=== PATIENT | female | born 1975 | race Caucasian/White ===

== ENCOUNTER 2021-02-05 09:36 | Emergency (ER) | payer MEDICAID ==
[~2021-02-05] VITALS: Ht 162.6 cm; Wt 80.7 kg
[2021-02-05 09:39] VITALS: BP 134/80
--- NOTE | 2021-02-05 09:58 | NUR ---
ERPA AT BEDSIDE FOR EVALUATION.
--- NOTE | 2021-02-05 09:59 | NUR ---
PATIENT WALKED BACK FROM TRIAGE WITH CHIEF C/O NEED REFILL OF HYCINGLA. PER PATIENT SHE JUST MOVED HERE FROM [place] AND WILL RUN OUT OF PAIN MEDICATION TOMORROW, HAS NOT ESTABLISHED WITH PRIMARY LOCALLY YET. DOES HAVE APPOINTMENT WITH CT PAIN SPECIALIST ON TUESDAY. PATIENT TAKES PAIN MEDICATION FOR ARTHRITIS FOR THE LAST 7 YEARS. FARRAH, CALL LIGHT WITHIN REACH.
[2021-02-05] MEDS ORDERED: ONDANSETRON ODT 4 MG ONE (10:46)
[2021-02-05] MEDS ORDERED: HYDROmorphone 1 MG/ML, 1ML INJ ONE (10:46)
[2021-02-05] MEDS ORDERED: ONDANSETRON ODT 4 MG PO ONE (11:00)
[2021-02-05] MEDS ORDERED: HYDROmorphone 1 MG/ML, 1ML INJ IM ONE (11:00)
--- NOTE | 2021-02-05 11:00 | NUR ---
Patient given discharge instructions and they have confirmed that they understand the instructions. Patient ambulatory with steady gait. NAD, all questions answered appropriately, denies additional needs at this time. No personal belongings left in room after discharge.
== END 2021-02-05 11:01 | disposition home or self-care (01) ==
LOC: ED 10:22
DX: R68.89 Other general symptoms and signs (principal); M19.90 Unspecified osteoarthritis, unspecified site; Z76.0 Encounter for issue of repeat prescription
CPT/HCPCS: 96372; 99283; J1170; Q0162

== ENCOUNTER 2021-03-07 07:35 | Emergency (ER) | payer MEDICAID ==
[~2021-03-07] VITALS: Ht 162.6 cm; Wt 78.0 kg
--- NOTE | 2021-03-07 08:00 | NUR ---
MED STUDENT AT BS
--- NOTE | 2021-03-07 08:00 | NUR ---
AMBULATORY TO ROOM FROM TRIAGE, PT CHANGED INTO GOWN. MONITORS IN PLACE. PT C/O R-ANKLE PAIN, NECK PAIN AND LOW BACK PAIN AFTER SLIPPING ON A [employer] AND [employer] AT [employer]. PT DENIES LOC. CALL LIGHT WITHIN REACH.
--- NOTE | 2021-03-07 08:18 | NUR ---
ERP AT BS
[2021-03-07] MEDS ORDERED: IBUPROFEN 200 MG TABLET PO ONE (08:30)
--- NOTE | 2021-03-07 08:39 | NUR ---
PT TO IMAGING
[2021-03-07] MEDS ORDERED: IBUPROFEN 600 MG TABLET ONE (08:40)
[2021-03-07 08:44] VITALS: BP 129/74
--- NOTE | 2021-03-07 08:44 | NUR ---
PT BACK FROM IMAGING, MEDICATED PER EMAR. CONNECTED TO MONITORS. CALL LIGHT WITHIN REACH
--- NOTE | 2021-03-07 09:14 | NUR ---
Patient given discharge instructions and RX, they have confirmed that they understand the instructions. Patient ambulatory with steady gait.
== END 2021-03-07 09:15 | disposition home or self-care (01) ==
LOC: ED 08:10
DX: S16.1XXA Strain of muscle, fascia and tendon at neck level, initial encounter (principal); S39.012A Strain of muscle, fascia and tendon of lower back, initial encounter; W01.0XXA Fall on same level from slipping, tripping and stumbling without subsequent striking against object, initial encounter; Y93.89 Activity, other specified; Y92.512 Supermarket, store or market as the place of occurrence of the external cause; Y99.8 Other external cause status
CPT/HCPCS: 72040; 72100; 99284